=== PATIENT | female | born 1950 | race Caucasian/White ===

== ENCOUNTER 2016-09-10 18:30 | Observation (INO) | payer MEDICARE ==
[2016-09-10 18:31] VITALS: BP 140/83; PULSE 68; RESP 16; TEMP 98.4; O2SAT 99
--- NOTE | 2016-09-10 19:50 | PD ---
Physical Exam Time Seen by Provider: 19:46 Narrative 66yo F c/o confusion today. Couldn't remember going to the [facility]. Daughter thinks she may have taken her pills twice but the patient doesn't think so. Tingling in bilateral fingers, worse in the left. Denies ALEJANDRO, lightheadedness, dizziness. Reports blurry vision. Denies change in gait. Denies fever, vomiting. HX of HTN. Patient A&Ox3 in triage. VSS. Patient seen in triage. Awaiting bed placement. Data Data Last Documented VS Vital Signs Date Time Temp Pulse Resp B/P Pulse Ox O2 Delivery O2 Flow Rate FiO2 09/10/16 18:31 98.4 68 16 140/83 99 Room Air MDM Supervised Visit with KATHY: Domitila Sauceda Sep 10, 2016 19:50
[2016-09-10 20:16] VITALS: BP 163/74; PULSE 68; RESP 18; TEMP 98.4; O2SAT 100
[2016-09-10] MEDS ORDERED: ASPI1TAB73 PO (20:27)
[2016-09-10] MEDS ORDERED: LISI10TA3 PO (20:27)
[2016-09-10] MEDS ORDERED: HYDR25TA5 PO (20:27)
[2016-09-10] MEDS ORDERED: ALPR0.5T3 PO (20:27)
--- NOTE | 2016-09-10 20:48 | PD ---
HPI Chief Complaint: Altered Mental Status Time Seen by Provider: 20:44 Travel History International Travel<30 days: No Contact w/Intl Traveler<30days: No Traveled to known affect area: No History of Present Illness HPI 66-year-old female that presents to the ED for evaluation of confusion. Per patient she has his blurry vision and some tingling in her fingers. Per family member who is the one who noticed a confusion they went to the grocery store as they're currently visiting from [place] for medication here and when they left the grocery store patient complained that she was hungry and the daughter told the patient that they could go home and make some food the patient stated that didn't have any food in the house and could not really remember old that they had just gone to go to the grocery store. Per daughter she believes that she might have taken her medications for a second time but she is not sure about this when they got home as she seemed to be confused about taking her medications earlier today. Per daughter she continues to be very confused some forgetful. She continues to question everything multiple times. She denies any other deficits. No numbness, weakness. No gait abnormalities. No slurred speech. No visual deficits are to some blurry vision. No headache. No chest pain. No abdominal pain. No nausea or vomiting. Allergies to shellfish. Patient has no PCP in the area. No history of CVA or ACS. Patient does have a history of hypertension. No history of diabetes. Family history of CVA in the past. PFSH Past Medical History Hx Anticoagulant Therapy: Yes (ASA) Anxiety: Yes Cardiovascular Problems: Yes (HTN) Hypertension: Yes Tetanus Vaccination: > 5 Years Influenza Vaccination: No : 4 Para: 4 Past Surgical History Cholecystectomy: Yes Hysterectomy: Yes Social History Alcohol Use: No Tobacco Use: No Substance Use: No Allergies-Medications (Allergen,Severity, Reaction): Coded Allergies: Shellfish (Verified Allergy, Mild, HIVES, 09/10/16) Reported Meds & Prescriptions Reported Meds & Active Scripts Active Reported Hydrochlorothiazide 25 Mg Tab 25 Mg PO DAILY Lisinopril 10 Mg Tab 10 Mg PO DAILY Alprazolam 0.5 Mg Tab 0.5 Mg PO BID PRN Tree Aspirin EC Low Dose (Aspirin) 81 Mg Tabdr 81 Mg PO DAILY Review of Systems Except as stated in HPI: all other systems reviewed are Neg Physical Exam Narrative GENERAL: SKIN: Warm and dry. HEAD: Atraumatic. Normocephalic. EYES: Pupils equal and round 4 mm reactive and accommodation. No scleral icterus. No injection or drainage. ENT: No nasal bleeding or discharge. Mucous membranes pink and moist. Tongue is midline. No uvula deviation. NECK: Trachea midline. No JVD. CARDIOVASCULAR: Regular rate and rhythm. No murmurs, S3, S4. RESPIRATORY: No accessory muscle use. Clear to auscultation. Breath sounds equal bilaterally. GASTROINTESTINAL: Abdomen soft, non-tender, nondistended. Hepatic and splenic margins not palpable. MUSCULOSKELETAL: Extremities without clubbing, cyanosis, or edema. No obvious deformities. Full range of motion of the upper and lower extremities bilaterally with 2+ pulses bilaterally. Neurovascular intact. NEUROLOGICAL: Awake and alert and oriented 4. No obvious cranial nerve deficits. Motor grossly within normal limits. Five out of 5 muscle strength in the arms and legs. Normal speech. Romberg is negative. Pronator test negative. Sensation intact bilaterally. Gait normal. PSYCHIATRIC: Appropriate mood and affect; insight and judgment normal. Data Data Last Documented VS Vital Signs Date Time Temp Pulse Resp B/P Pulse Ox O2 Delivery O2 Flow Rate FiO2 09/10/16 20:16 98.4 68 18 163/74 100 Room Air Orders Electrocardiogram (09/10/16 20:20) Prothrombin Time / Inr (Pt) (09/10/16 20:20) Act Partial Throm Time (Ptt) (09/10/16 20:20) Complete Blood Count With Diff (09/10/16 20:20) Comprehensive Metabolic Panel (09/10/16 20:20) Creatine Kinase (Cpk) (09/10/16 20:20) Troponin I (09/10/16 20:20) Urinalysis - C+S If Indicated (09/10/16 20:20) Ct Brain W/O Iv Contrast(Rout) (09/10/16 20:20) Chest, Single Ap (09/10/16 20:20) Ecg Monitoring (09/10/16 20:20) Iv Access Insert/Monitor (09/10/16 20:20) Oximetry (09/10/16 20:20) Blood Glucose (09/10/16 20:20) CKMB (09/10/16 20:30) CKMB% (09/10/16 20:30) Urine Culture (09/10/16 21:30) Labs Laboratory Tests Test 09/10/16 09/10/16 20:30 21:30 White Blood Count 7.9 TH/MM3 Red Blood Count 4.46 MIL/MM3 Hemoglobin 12.0 GM/DL Hematocrit 35.8 % Mean Corpuscular Volume 80.2 FL Mean Corpuscular Hemoglobin 27.0 PG Mean Corpuscular Hemoglobin 33.6 % Concent Red Cell Distribution Width 13.6 % Platelet Count 285 TH/MM3 Mean Platelet Volume 8.6 FL Neutrophils (%) (Auto) 38.9 % Lymphocytes (%) (Auto) 49.7 % Monocytes (%) (Auto) 7.9 % Eosinophils (%) (Auto) 3.1 % Basophils (%) (Auto) 0.4 % Neutrophils # (Auto) 3.1 TH/MM3 Lymphocytes # (Auto) 3.9 TH/MM3 Monocytes # (Auto) 0.6 TH/MM3 Eosinophils # (Auto) 0.2 TH/MM3 Basophils # (Auto) 0.0 TH/MM3 CBC Comment DIFF FINAL Differential Comment Prothrombin Time 10.4 SEC Prothromb Time International 0.9 RATIO Ratio Activated Partial 26.7 SEC Thromboplast Time Sodium Level 135 MEQ/L Potassium Level 3.8 MEQ/L Chloride Level 99 MEQ/L Carbon Dioxide Level 29.8 MEQ/L Anion Gap 6 MEQ/L Blood Urea Nitrogen 20 MG/DL Creatinine 0.84 MG/DL Estimat Glomerular Filtration 68 ML/MIN Rate Random Glucose 83 MG/DL Calcium Level 8.5 MG/DL Total Bilirubin 0.3 MG/DL Aspartate Amino Transf 51 U/L (AST/SGOT) Alanine Aminotransferase 25 U/L (ALT/SGPT) Alkaline Phosphatase 73 U/L Total Creatine Kinase 421 U/L Creatine Kinase MB 6.8 NG/ML Creatine Kinase MB % 1.6 % Troponin I 0.02 NG/ML Total Protein 7.2 GM/DL Albumin 3.8 GM/DL Urine Color LIGHT-YELLOW Urine Turbidity CLEAR Urine pH 5.0 Urine Specific [place] 1.013 Urine Protein NEG mg/dL Urine Glucose (UA) NEG mg/dL Urine Ketones NEG mg/dL Urine Occult Blood NEG Urine Nitrite NEG Urine Bilirubin NEG Urine Urobilinogen LESS THAN 2.0 MG/DL Urine Leukocyte Esterase LARGE Urine RBC 1 /hpf Urine WBC 2 /hpf Urine Squamous Epithelial <1 /hpf Cells Urine Bacteria RARE /hpf Urine Mucus FEW /lpf Microscopic Urinalysis Comment CATH-CULTURE IND MDM Medical Decision Making Medical Screen Exam Complete: Yes Emergency Medical Condition: Yes Medical Record Reviewed: Yes Interpretation(s) Last Impressions Head CT 09/10/162019 Signed Impressions: Service Date/Time: August 21:34 - CONCLUSION: Negative noncontrast CT. Maksim Ojeda MD Chest X-Ray 09/10/162019 Signed Impressions: Service Date/Time: August 20:28 - CONCLUSION: No acute disease. Joseph Varela MD EKG shows sinus rhythm with no sign of acute ischemia or arrhythmia read by me and attending. CBC & BMP Diagram 09/10/16 20:30 Troponin and CK-MB negative. UA negative. Differential Diagnosis CVA versus TIA versus upper mental status versus UTI versus sepsis versus ACS Narrative Course 66-year-old female that presents to the ED for evaluation of confusion. Patient was properly examined and was found to have signs and symptoms concerning for possible CVA versus TIA. At this time I recommend labs and imaging. Patient and daughter are in agreement with plan. Labs and imaging showed no sign of acute disease. At this time I do recommend admission for CVA and TIA workup. Patient and family in agreement with this plan. Patient was admitted to Dr Miller who agrees to admission. Diagnosis Primary Impression: Altered mental status Qualified Code: R41.82 - Altered mental status, unspecified altered mental status type Admitting Information Admitting Physician Requests: Malcolm Pepe Sep 10, 2016 20:48
[2016-09-10 20:55] LABS: AUTOMATED NEUTROPHIL # 3.1 TH/MM3 (1.8-7.7); BASOPHIL % 0.4 % (0.0-2.0); EOSINOPHIL # 0.2 TH/MM3 (0-0.4); EOSINOPHIL % 3.1 % (0.0-4.0); HEMATOCRIT 35.8 % (35.0-46.0); HEMO FLAGS DIFF FINAL; LYMPH % 49.7 % (9.0-44.0); LYMPHOCYTE # 3.9 TH/MM3 (1.0-4.8); MEAN CELL VOLUME 80.2 FL (80.0-100.0); MEAN CORPUSCULAR HGB CONC 33.6 % (32.0-36.0); MONO % 7.9 % (0.0-8.0); NEUT % 38.9 % (16.0-70.0); PLATELET COUNT 285 TH/MM3 (150-450); RED BLOOD COUNT 4.46 MIL/MM3 (4.00-5.30); RED CELL DISTRIBUTION WIDTH 13.6 % (11.6-17.2); WHITE BLOOD COUNT 7.9 TH/MM3 (4.0-11.0)
--- NOTE | 2016-09-10 20:59 | RADRPT ---
EXAM DATE/TIME: 09/10/2016 20:28 [facility] COMPARISON: No previous studies available for comparison. INDICATIONS : Memory loss today possible stroke. MEDICAL HISTORY : None. SURGICAL HISTORY : None. ENCOUNTER: Initial ACUITY: 1 day PAIN SCORE: 0/10 LOCATION: Bilateral upper chest FINDINGS: A single view of the chest demonstrates the lungs to be symmetrically aerated without evidence of mas s, infiltrate or effusion. The cardiomediastinal contours are unremarkable. Osseous structures are intact. CONCLUSION: No acute disease. Joseph Varela MD on September 10, 2016 at 20:57 Board Certified Radiologist. This report was verified electronically.
[2016-09-10 21:09] LABS: APTT (PATIENT) 26.7 SEC (24.3-30.1); INTERNATIONAL NORMALIZED RATIO 0.9 RATIO; PROTHROMBIN TIME - PATIENT 10.4 SEC (9.8-11.6)
[2016-09-10 21:33] LABS: ALKALINE PHOSPHATASE 73 U/L (45-117); ALT (GPT) 25 U/L (10-53); ANION GAP 6 MEQ/L (5-15); AST (GOT) 51 U/L (15-37); BICARBONATE 29.8 MEQ/L (21.0-32.0); BLOOD UREA NITROGEN 20 MG/DL (7-18); CHLORIDE 99 MEQ/L (98-107); CREATINE KINASE 421 U/L (26-192); GLOMERULAR FILTRATION RATE 68 ML/MIN (>89); POTASSIUM 3.8 MEQ/L (3.5-5.1); SODIUM (NA) 135 MEQ/L (136-145); TOTAL BILIRUBIN ADULT 0.3 MG/DL (0.2-1.0)
[2016-09-10 21:48] LABS: CKMB 6.8 NG/ML (0.5-3.6)
--- NOTE | 2016-09-10 21:48 | RADRPT ---
EXAM DATE/TIME: 09/10/2016 21:34 [facility] COMPARISON: No previous studies available for comparison. INDICATIONS : Confusion and altered mental status. RADIATION DOSE: 56.35 CTDIvol (mGy) MEDICAL HISTORY : Hypertension. 2 SURGICAL HISTORY : Cholecystectomy. ENCOUNTER: Initial ACUITY: 1 day PAIN SCALE: 2/10 LOCATION: cranial TECHNIQUE: Multiple contiguous axial images were obtained of the head. Using automated exposure control and adj ustment of the mA and/or kV according to patient size, radiation dose was kept as low as reasonably a chievable to obtain optimal diagnostic quality images. FINDINGS: There is mild streak artifact from overlying metallic structures. CEREBRUM: The ventricles are normal for age. No evidence of midline shift, mass lesion, hemorrhage or acute in farction. No extra-axial fluid collections are seen. POSTERIOR FOSSA: The cerebellum and brainstem are intact. The 4th ventricle is midline. The cerebellopontine angle i s unremarkable. EXTRACRANIAL: The visualized portion of the orbits is intact. SKULL: The calvaria is intact. No evidence of skull fracture. CONCLUSION: Negative noncontrast CT. Maksim Ojeda MD on September 10, 2016 at 21:45 Board Certified Radiologist. This report was verified electronically.
[2016-09-10 22:07] LABS: BACTERIA, URINE RARE /hpf; BLOOD, URINE NEG (NEG); GLUCOSE,URINE NEG (NEG); KETONE, URINE NEG (NEG); MUCUS URINE FEW /lpf (OCC); NITRITE,URINE NEG (NEG); SQUAMOUS EPITHELIAL CELL URINE <1 /hpf (0-5); URINE COLOR LIGHT-YELLOW (YELLW/STRAW)
[2016-09-10 22:08] LABS: COMMENT (UR) CATH-CULTURE IND; CULTURE IF INDICATED CATH CULTURE IND
[2016-09-10] MEDS ORDERED: SODIUM CHLORIDE 0.9% FLUSH 10 ML FLUSH IV FLUSH PRN (22:15)
[2016-09-10] MEDS ORDERED: ALPRAZolam 0.5 MG TAB PO PRN (22:15)
[2016-09-10] MEDS ORDERED: ONDANSETRON HCL 4 MG/2 ML VIAL IVP PRN (22:15)
[2016-09-10] MEDS ORDERED: NALOXONE HCL 0.4 MG/ML AMP IV PRN (22:15)
[2016-09-10] MEDS ORDERED: ASPIRIN 325 MG TAB PO SCH (22:15)
--- NOTE | 2016-09-10 22:48 | EKG ---
Date Performed: 09/10/2016 Time Performed: 20:35:25 PTAGE: 66 years EKG: Sinus rhythm NORMAL ECG NO PREVIOUS TRACING DOCTOR: Elfego Hein Interpretating Date/Time 09/10/2016 22:46:22
[2016-09-10] MEDS ORDERED: ENOXAPARIN SODIUM 40 MG/0.4 ML SYRINGE SQ SCH (23:00)
--- NOTE | 2016-09-10 23:25 | RADRPT ---
EXAM DATE/TIME: 09/10/2016 22:36 [facility] COMPARISON: No previous studies available for comparison. INDICATIONS : Cerebrovascular accident. MEDICAL HISTORY : Hypertension. Anticoagulant therapy. Anxiety. Blurred vision. SURGICAL HISTORY : Cholecystectomy. Hysterectomy. Left knee surgery. Left shoulder surgery. ENCOUNTER: Initial ACUITY: 1 day PAIN SCORE: 0/10 LOCATION: Bilateral neck PEAK SYSTOLIC VELOCITIES (cm/sec): ICA/CCA RATIO: Right: 1.2 Left: 1.8 ICA: Right: 89 Left: 126 CCA: Right: 76 Left: 69 ECA: Right: 49 Left: 39 VERTEBRAL: Right: 66 antegrade Left: 71 antegrade Elevated flow velocities and ICA/CCA ratios have been found to correlate with increased degrees of vessel stenosis, calculated as percentage of diameter relative to a normal segment of distal ICA/CCA FINDINGS: RIGHT CAROTID: No significant stenosis is visualized. The waveforms are within normal limits. LEFT CAROTID: Mild atherosclerotic plaquing at the bifurcation. No significant stenosis is visualized. The wavefor ms are within normal limits. VERTEBRAL ARTERIES: Antegrade flow is seen in both vertebral arteries. MISCELLANEOUS: None. CONCLUSION: Mild atherosclerotic plaquing at the left carotid bifurcation. No focal high grade or hemodynamically significant stenosis. Darrell Castro MD on September 10, 2016 at 23:23 Board Certified Radiologist. This report was verified electronically.
[2016-09-11] VITALS (8 sets, daily range): BP systolic 114–133; BP diastolic 56–71; PULSE 60–84; RESP 16–18; TEMP 96.8–98.4; O2SAT 95–100
--- NOTE | 2016-09-11 03:14 | HHI.HP ---
HPI Service [facility] Primary Care Physician Non-Staff Admission Diagnosis altered mental status, r/o CVA Diagnoses: Chief Complaint: confusion Travel History International Travel<30 Days: No Contact w/Intl Traveler <30 Da: No Traveled to Known Affected Are: No History of Present Illness This is a pleasant 66 year old female patient with a past medical history which includes hypertension, asthma in the distant past. Patient is here on vacation from [place]. Patient reports she had a 3.5 hour plane ride. Patient does report she got up several times to walk around the airplane. Patient denies bilateral lower extremity edema or pain. Patient was brought into the emergency department by her daughter because of confusion. Daughter is not currently available at bedside. Per ER documentation: Per family member who is the one who noticed a confusion they went to the grocery store as they're currently visiting from [facility] for medication here and when they left the grocery store patient complained that she was hungry and the daughter told the patient that they could go home and make some food the patient stated that didn't have any food in the house and could not really remember old that they had just gone to go to the grocery store. On admission patient had reported to the ER provider blurry vision and some tingling in her fingers. At this time patient is alert and oriented 3 reports confusion has resolved. Patient denies headaches, changes in vision, blurry vision, numbness/tingling or focal weakness. Patient denies TIA/CVA, or seizure disorder in the past. Patient reports she's been compliant with her antihypertensive and reports blood pressure has been under control. Denies chest pain, shortness of breath, nausea, vomiting, diarrhea, constipation , fevers or chills Review of Systems Except as stated in HPI: all other systems reviewed are Neg Past Family Social History Past Medical History HTN, asthma in the past Past Surgical History hysterectomy, knee replacement, cholecystectomy Reported Medications Hydrochlorothiazide 25 Mg Tab 25 Mg PO DAILY Lisinopril 10 Mg Tab 10 Mg PO DAILY Alprazolam 0.5 Mg Tab 0.5 Mg PO BID PRN Tree Aspirin EC Low Dose (Aspirin) 81 Mg Tabdr 81 Mg PO DAILY Allergies: Coded Allergies: Shellfish (Verified Allergy, Mild, HIVES, 09/11/16) Active Ordered Medications Current Medications Medications (Trade) Dose Ordered Sig/[place] Route Start Time Stop Time Status Last Admin (NS Flush) 2 ml UNSCH PRN IV FLUSH 09/10/16 22:15 (NS Flush) 2 ml BID IV FLUSH 09/11/16 09:00 (Zofran Inj) 4 mg Q6H PRN IVP 09/10/16 22:15 (Narcan Inj) 0.4 mg UNSCH PRN IV 09/10/16 22:15 (Aspirin) 325 mg DAILY PO 09/10/16 22:15 09/10/16 22:34 (Xanax) 0.5 mg BID PRN PO 09/10/16 22:15 Family History Reports DM and hypertension run in her family sister has CVA, HTN, DM and ovarian cancer Social History Patient lives in [place] is here on vacation Denies tobacco use EtOH use or illicit drug use Physical Exam Vital Signs Vital Signs Date Time Temp Pulse Resp B/P Pulse Ox O2 Delivery O2 Flow Rate FiO2 09/11/16 01:45 60 09/11/16 01:22 98.4 64 18 128/71 96 09/11/16 01:01 98.4 67 18 133/64 100 Room Air 09/10/16 20:16 98.4 68 18 163/74 100 Room Air 09/10/16 20:16 67 18 100 Room Air 09/10/16 18:31 98.4 68 16 140/83 99 Room Air Physical Exam GENERAL: This is a well-nourished, well-developed patient, in no apparent distress. SKIN: No rashes, ecchymoses or lesions. Cool and dry. HEAD: Atraumatic. Normocephalic. No temporal or scalp tenderness. EYES: Extraocular motions intact. No scleral icterus. No injection or drainage. CARDIOVASCULAR: Regular rate and rhythm without murmurs, gallops, or rubs. RESPIRATORY: Clear to auscultation. Breath sounds equal bilaterally. No wheezes , rales, or rhonchi. GASTROINTESTINAL: Abdomen soft, non-tender, nondistended. No guarding. MUSCULOSKELETAL: Extremities without clubbing, cyanosis, or edema. No joint tenderness, effusion, or edema noted. No calf tenderness. Negative Homans sign bilaterally. NEUROLOGICAL: Awake and alert. No focal deficits appreciated this time Motor and sensory grossly within normal limits. Five out of 5 muscle strength in all muscle groups. Normal speech. Laboratory Laboratory Tests Test 09/10/16 09/10/16 20:30 21:30 White Blood Count 7.9 Red Blood Count 4.46 Hemoglobin 12.0 Hematocrit 35.8 Mean Corpuscular Volume 80.2 Mean Corpuscular Hemoglobin 27.0 Mean Corpuscular Hemoglobin 33.6 Concent Red Cell Distribution Width 13.6 Platelet Count 285 Mean Platelet Volume 8.6 Neutrophils (%) (Auto) 38.9 Lymphocytes (%) (Auto) 49.7 Monocytes (%) (Auto) 7.9 Eosinophils (%) (Auto) 3.1 Basophils (%) (Auto) 0.4 Neutrophils # (Auto) 3.1 Lymphocytes # (Auto) 3.9 Monocytes # (Auto) 0.6 Eosinophils # (Auto) 0.2 Basophils # (Auto) 0.0 CBC Comment DIFF FINAL Differential Comment Prothrombin Time 10.4 Prothromb Time International 0.9 Ratio Activated Partial 26.7 Thromboplast Time Sodium Level 135 Potassium Level 3.8 Chloride Level 99 Carbon Dioxide Level 29.8 Anion Gap 6 Blood Urea Nitrogen 20 Creatinine 0.84 Estimat Glomerular Filtration 68 Rate Random Glucose 83 Calcium Level 8.5 Total Bilirubin 0.3 Aspartate Amino Transf 51 (AST/SGOT) Alanine Aminotransferase 25 (ALT/SGPT) Alkaline Phosphatase 73 Total Creatine Kinase 421 Creatine Kinase MB 6.8 Creatine Kinase MB % 1.6 Troponin I 0.02 Total Protein 7.2 Albumin 3.8 Urine Color LIGHT-YELLOW Urine Turbidity CLEAR Urine pH 5.0 Urine Specific [place] 1.013 Urine Protein NEG Urine Glucose (UA) NEG Urine Ketones NEG Urine Occult Blood NEG Urine Nitrite NEG Urine Bilirubin NEG Urine Urobilinogen LESS THAN 2.0 Urine Leukocyte Esterase LARGE Urine RBC 1 Urine WBC 2 Urine Squamous Epithelial <1 Cells Urine Bacteria RARE Urine Mucus FEW Microscopic Urinalysis Comment CATH-CULTURE IND Date/Time Procedure Status Source Growth 09/10/16 21:30 Urine Culture Received Urine Catheterized Urine Pending Result Diagram: 09/10/16202909/10/162029 Imaging Last Impressions Head CT 09/10/162019 Signed Impressions: Service Date/Time: August 21:34 - CONCLUSION: Negative noncontrast CT. Maksim Ojeda MD Chest X-Ray 09/10/162019 Signed Impressions: Service Date/Time: August 20:28 - CONCLUSION: No acute disease. Joseph Varela MD Carotid Artery Ultrasound 09/10/16 0000 Signed Impressions: Service Date/Time: August 22:36 - CONCLUSION: Mild atherosclerotic plaquing at the left carotid bifurcation. No focal high grade or hemodynamically significant stenosis. Darrell Castro MD Assessment and Plan Assessment and Plan This is a pleasant 66 year old female patient with a past medical history which includes hypertension, asthma in the distant past. Patient is here on vacation from [place]. Patient reports she had a 3.5 hour plane ride. Patient does report she got up several times to walk around the airplane. Patient denies bilateral lower extremity edema or pain. Patient was brought into the emergency department by her daughter because of confusion and numbness/tingling in bilateral hands TIA/CVA aspirin daily US bilateral carotid arteries: Mild atherosclerotic plaquing at the left carotid bifurcation. No focal high grade or hemodynamically significant stenosis. CT head: Read as negative no acute findings Echocardiogram ordered and pending serial neurochecks, maintain head of bed flat and allow permissive hypertension Hypertension Allow permissive hypertension will hold home lisinopril as well as home hydrochlorothiazide DVT prophylaxis with Lovenox Discussed with a provider, nursing and patient Written by Gale Malik, acting as scribe for Dr. Miller on 09/11/16 at 03: 29. This note was transcribed by scribe [Gale Malik]. I, Dr. Shanti Miller personally performed the history, physical exam, and medical decision making; and confirmed the accuracy of the information in the transcribed note. Authenticated by Dr. Shanti Miller on 09/11/16 at 03:29. Gale Malik Sep 11, 2016 03:14 Shanti Miller MD September 28, 2016 05:41
[2016-09-11 07:03] LABS: AUTOMATED NEUTROPHIL # 1.9 TH/MM3 (1.8-7.7); BASOPHIL % 0.1 % (0.0-2.0); EOSINOPHIL # 0.2 TH/MM3 (0-0.4); EOSINOPHIL % 4.2 % (0.0-4.0); HEMATOCRIT 34.1 % (35.0-46.0); HEMO FLAGS DIFF FINAL; LYMPH % 56.6 % (9.0-44.0); LYMPHOCYTE # 3.3 TH/MM3 (1.0-4.8); MEAN CELL VOLUME 80.5 FL (80.0-100.0); MEAN CORPUSCULAR HEMOGLOBIN 26.3 PG (27.0-34.0); MEAN CORPUSCULAR HGB CONC 32.7 % (32.0-36.0); MONO % 7.6 % (0.0-8.0); NEUT % 31.5 % (16.0-70.0); PLATELET COUNT 252 TH/MM3 (150-450); RED BLOOD COUNT 4.24 MIL/MM3 (4.00-5.30); RED CELL DISTRIBUTION WIDTH 13.5 % (11.6-17.2); WHITE BLOOD COUNT 5.9 TH/MM3 (4.0-11.0)
[2016-09-11 07:23] LABS: BICARBONATE 29.6 MEQ/L (21.0-32.0); POTASSIUM 3.3 MEQ/L (3.5-5.1)
[2016-09-11] MEDS ORDERED: POTASSIUM CHLORIDE 20 MEQ CONTROLLED RELEASE TAB PO ONE (08:00)
--- NOTE | 2016-09-11 08:39 | PD.CONS ---
History of Present Illness Service Neurology Consult Requested By er Reason for Consult confusion Primary Care Physician Non-Staff History of Present Illness 66 year old female pt admitted for confusion. Patient is here on vacation from [place]. On admission patient had reported to the ER provider blurry vision and some tingling in her fingers. daughter noticed pt to have have repetitive speech and confusion per pt. no repvious occurrence. The pt remembers being out in the sun for several hours and possibly not drinking enough fluids. takes aspirin qd. glucose 83 bp 140/83. no fever, no leukocytosis. ct brain nml carotid u/s without any significant stenosis Patient denies headaches, changes in vision, blurry vision, numbness/tingling or focal weakness. no cp, no dyspnea. slept well overnight. ready for breakfast. Patient denies TIA/CVA, or seizure disorder in the past. Denies chest pain, shortness of breath, nausea, vomiting, diarrhea, constipation , fevers or chills Review of Systems Except as stated in HPI: all other systems reviewed are Neg Past Family Social History Past Medical History HTN, asthma in the past Past Surgical History hysterectomy, knee replacement, cholecystectomy Reported Medications Hydrochlorothiazide 25 Mg Tab 25 Mg PO DAILY Lisinopril 10 Mg Tab 10 Mg PO DAILY Alprazolam 0.5 Mg Tab 0.5 Mg PO BID PRN Tree Aspirin EC Low Dose (Aspirin) 81 Mg Tabdr 81 Mg PO DAILY Allergies: Coded Allergies: Shellfish (Verified Allergy, Mild, HIVES, 09/11/16) Family History +dm, htn in family sister has CVA, HTN, DM and ovarian cancer Social History Patient lives in [place] is here on vacation Denies tobacco use EtOH use or illicit drug use Review of Systems All other ROS: ROS reviewed as documented in chart Past Family Social History Allergies: Coded Allergies: Shellfish (Verified Allergy, Mild, HIVES, 09/11/16) Active Ordered Medications Current Medications Medications (Trade) Dose Ordered Sig/[place] Route Start Time Stop Time Status Last Admin (NS Flush) 2 ml UNSCH PRN IV FLUSH 09/10/16 22:15 (NS Flush) 2 ml BID IV FLUSH 09/11/16 09:00 (Zofran Inj) 4 mg Q6H PRN IVP 09/10/16 22:15 (Narcan Inj) 0.4 mg UNSCH PRN IV 09/10/16 22:15 (Aspirin) 325 mg DAILY PO 09/10/16 22:15 09/10/16 22:34 (Xanax) 0.5 mg BID PRN PO 09/10/16 22:15 (Lovenox Inj) 40 mg Q24H SQ 09/11/16 22:00 Exam I&O / VS Vital Signs Date Time Temp Pulse Resp B/P Pulse Ox O2 Delivery O2 Flow Rate FiO2 09/11/16 07:41 96.8 72 16 114/57 95 09/11/16 04:37 97.8 66 18 117/56 98 09/11/16 01:45 60 09/11/16 01:22 98.4 64 18 128/71 96 09/11/16 01:01 98.4 67 18 133/64 100 Room Air 09/10/16 20:16 98.4 68 18 163/74 100 Room Air 09/10/16 20:16 67 18 100 Room Air 09/10/16 18:31 98.4 68 16 140/83 99 Room Air General: Alert and Oriented, No acute distress Eye: EOMI Respiratory: Non-labored respirations Cardiology: Normal rate Musculoskeletal: ROM Neurologic: Alert, Oriented, Normal sensory, Normal motor, No focal defects, CN II-XII intact, Gag reflex normal, Normal DTR's Psychiatric: Cooperative, Appropriate mood & affect, Normal judgement, Non- suicidal Exam Comments a ox 3. calm , pleasant, follows, no aphasia, able to repeat, name objects, discuss medical hx, name pres, eomi, vff, no neglect, no weakness, ambulating without difficulty Review/Management Diagnosis/Plan: (1) Acute confusion Plan: ddx: heat-induced, tia, r/o sz exam non-focal recs change to plavix mri/mra eeg lipids - in range echo tele hydration/limit direct sun exposure if above negative can be dc'd and f/u with her pcp [place] (2) HTN (hypertension) Problem Qualifiers (1) HTN (hypertension): Qualified Code: I10 - Essential hypertension Dieudonne Pa MD Sep 11, 2016 08:39
[2016-09-11] MEDS ORDERED: SODIUM CHLORIDE 0.9% FLUSH 10 ML FLUSH IV FLUSH SCH (09:00)
[2016-09-11] MEDS ORDERED: HEPARIN SODIUM - SQ 10,000 UNITS/ML VIAL SQ SCH (09:00)
[2016-09-11] MEDS ORDERED: CLOPIDOGREL 75 MG TAB PO SCH (09:00)
[2016-09-11 10:21] LABS: MAGNESIUM 2.1 MG/DL (1.5-2.5)
--- NOTE | 2016-09-11 11:22 | EC ---
Study Study Date:09/11/2016 STUDY CONCLUSIONS SUMMARY - Procedure narrative: Transthoracic echocardiography. Image quality was good. Scanning was performed from the parasternal, apical, and subcostal acoustic windows. - Left ventricle: The cavity size was normal. Wall thickness was normal. Systolic function was normal. The estimated ejection fraction was in the range of 55% to 60%. Wall motion was normal; there were no regional wall motion abnormalities. - Tricuspid valve: Trace to mild regurgitation. If LV function is below 40, please consider prescribing an ACEI or ARB or document rationale for non-use. PROCEDURE DATA STUDY STATUS: Elective. Procedure: Transthoracic echocardiography. Image quality was good. Scanning was performed from the parasternal, apical, and subcostal acoustic windows. Study completion: The patient tolerated the procedure well. Transthoracic echocardiography. M-mode, complete 2D, complete spectral Doppler, and color Doppler. Patient status: Inpatient. CARDIAC ANATOMY LEFT VENTRICLE: The cavity size was normal. Wall thickness was normal. Systolic function was normal. The estimated ejection fraction was in the range of 55% to 60%. Wall motion was normal; there were no regional wall motion abnormalities. AORTIC VALVE: Trileaflet; normal thickness leaflets. Doppler: Transvalvular velocity was within the normal range. There was no stenosis. No regurgitation. Peak gradient: 13mm Hg (S). AORTA: Aortic root: The aortic root was normal in size. MITRAL VALVE: Structurally normal valve. Doppler: Transvalvular velocity was within the normal range. There was no evidence for stenosis. No regurgitation. Mean gradient: 1mm Hg (D). LEFT ATRIUM: The atrium was normal in size. RIGHT VENTRICLE: The cavity size was normal. Wall thickness was normal. PULMONIC VALVE: Doppler: Transvalvular velocity was within the normal range. There was no evidence for stenosis. No regurgitation. TRICUSPID VALVE: Structurally normal valve. Doppler: Transvalvular velocity was within the normal range. Trace to mild regurgitation. PULMONARY ARTERY: The main pulmonary artery was normal-sized. Systolic pressure was within the normal range. RIGHT ATRIUM: The atrium was normal in size. PERICARDIUM: There was no pericardial effusion. SYSTEMIC VEINS: Inferior vena cava: The vessel was normal in size. BASIC MEASUREMENTS ADULT Normal Left ventricle LV internal dimension, ED, chordal level, 49.1 mm 43-52 PLAX LV internal dimension, ES, chordal level, *38.2 mm 23-38 PLAX Fractional shortening, chordal level, PLAX *22 % >29 LV posterior wall thickness, ED 8.23 mm IVS/LVPW ratio, ED 1.07 <1.3 Ventricular septum Septal thickness, ED 8.83 mm Aortic valve Leaflet separation 15 mm 15-26 Left atrium Anterior-posterior dimension 24 mm Right ventricle RV internal dimension, ED, PLAX 35 mm 19-38 BASIC MEASUREMENTS ADULT Normal Aortic valve Leaflet separation 15 mm 15-26 Aorta Root diameter, ED 27 mm 20-37 DOPPLER MEASUREMENTS ADULT Normal Aortic valve Peak velocity, S 179 cm/s VTI, S 37.9 cm Peak gradient, S 13 mm Hg Mitral valve Peak E-wave velocity 69.1 cm/s Peak A-wave velocity 90.3 cm/s Mean velocity, D 51.1 cm/s Mean gradient, D 1 mm Hg Peak E/A ratio 0.8 Tricuspid valve Regurgitant peak velocity 212 cm/s Peak RV-RA gradient, S 18 mm Hg Maximal regurgitant velocity 212 cm/s LEGEND: Mean values are shown as u=mean value. Asterisk (*) nava values outside specified normal range. Prepared and signed by Elfego Hein [id number]
--- NOTE | 2016-09-11 12:06 | RADRPT ---
EXAM DATE/TIME: 09/11/2016 11:14 [facility] COMPARISON: CT BRAIN W/O CONTRAST, September 10, 2016, 21:34. INDICATIONS : Altered mental status. MEDICAL HISTORY : Hypertension. SURGICAL HISTORY : None. ENCOUNTER: Initial ACUITY: 1 day PAIN SCORE: 0/10 LOCATION: cranial TECHNIQUE: Multiplanar, multisequence MRI of the brain was performed without contrast. FINDINGS: CEREBRUM: The ventricles are normal for age. No evidence of midline shift, mass lesion, hemorrhage or acute in farction. No extraaxial fluid collections are seen. The pituitary gland and suprasellar cistern are normal in configuration. WHITE MATTER: No significant signal abnormalities are seen in the white matter. POSTERIOR FOSSA: The cerebellum and brainstem are intact. The 4th ventricle is midline. The cerebellopontine angle is unremarkable. The cerebellar tonsils are normal in position. DIFFUSION IMAGING: No focal areas of restricted diffusion are seen. No evidence of acute infarction. EXTRACRANIAL: The visualized portions of the orbits and paranasal sinuses are unremarkable. CONCLUSION: Normal examination. Mateo Moore MD on September 11, 2016 at 12:01 Board Certified Radiologist. This report was verified electronically.
--- NOTE | 2016-09-11 12:15 | RADRPT ---
EXAM DATE/TIME: 09/11/2016 11:14 [facility] COMPARISON: MRI BRAIN W/O CONTRAST, September 11, 2016, 11:14. INDICATIONS : Altered mental status. MEDICAL HISTORY : Hypertension. SURGICAL HISTORY : None. ENCOUNTER: Initial ACUITY: 1 day PAIN SCORE: 0/10 LOCATION: cranial Please note a normal MRA of the brain does not entirely exclude the possibility of a small aneurysm, nor the possibility of distal intracranial vessel disease. TECHNIQUE: 3D time of flight MRA was performed. Source images, multiplanar STS MIP, and 3D volume MIP reconstru ctions were reviewed. FINDINGS: There is excellent visualization of the major intracranial arteries out to the second-order branch ve ssels. There is no evidence for aneurysm, vessel truncation or stenosis, and no evidence for vascula r malformation. CONCLUSION: Normal examination. Mateo Moore MD on September 11, 2016 at 12:12 Board Certified Radiologist. This report was verified electronically.
--- NOTE | 2016-09-11 14:38 | HHI.PR ---
Addendum to Inpatient Note Addendum Reason: Additional Documentation Additional Information I was paged at 1405 by RN that the patient was asking to go home today. I informed RN that the EEG results were still pending and that I would see the patient later today. I went to see the patient at 1430 and I was informed that she had already left AGAINST MEDICAL ADVICE. Reportedly the patient did not want to wait for EEG results. Wilver Anthony Sep 11, 2016 14:38
[2016-09-11] MEDS ORDERED: ENOXAPARIN SODIUM 40 MG/0.4 ML SYRINGE SQ SCH (22:00)
--- NOTE | 2016-09-11 22:34 | MG ---
cc: FILIPE GIFFORD MD Lab No: [id number] Date: 09/11/16 Age: 66 Sex: F Race: 1950 A 66 year old, history of hypertension and ____ confusion. Posterior rhythm demonstrating 6-8 Hz activity, 20-50 microvolts frontal beta frequencies. 20-40 microvolt activity. Desynchronized theta frequencies occurring paroxysmally in bilateral frontal central regions. Small tiny sharp transient temporal region epoch 35, reduced driving with photic stimulation. Attenuation generalized slowing with transition into drowsy state followed by stage I and stage II sleep with the appearance of spindles K complexes. Frontal sharp transients noted epoch 79. Rhythmic left temporal theta seen epoch 112 side to side difference. Appeared to be occurring during stage II sleep, in addition recurrence T3 epoch 115. Single lead EKG showing sinus rhythm. INTERPRETATION Nonspecific abnormalities as noted above, potential left frontotemporal irritability which could be a nidus for seizure activity, although no active seizures. Otherwise, stable awake sleep EEG. Clinical correlation. Filipe Gifford MD MG/ /9:48 PM /10:24 PM
== END 2016-09-11 15:41 | disposition left against medical advice (07) ==
LOC: NEPE 18:30 → NEDA 22:12 → NEPFCDU 09-11 01:09
PROVIDERS: ADMIT Family Medicine; ATTEND Family Medicine
DX: R41.82 Altered mental status, unspecified (principal); F41.9 Anxiety disorder, unspecified; I10 Essential (primary) hypertension; J45.909 Unspecified asthma, uncomplicated; Z91.013 Allergy to seafood; Z79.82 Long term (current) use of aspirin; Z96.659 Presence of unspecified artificial knee joint
CPT/HCPCS: 70450; 70544; 70551; 71010; 80048; 80053; 80061; 81001; 82550; 82552; 83735; 84443; 84484; 85025; 85610; 85730; 87086; 93005; 93306; 93880; 95819; 97161; 99285; G0378; G8987; G8988; J1644; J1650